=== PATIENT | male | born 1960 | race Caucasian/White ===

== ENCOUNTER → 2024-06-04 | Emergency (ER) | payer SELFPAY | LOC: ED 21:23 | DX: Z53.9 Procedure and treatment not carried out, unspecified reason (principal) ==

== ENCOUNTER 2024-07-27 17:29 | Emergency (ER) | payer MEDICARE, OTHER ==
[2024-07-27 18:18] VITALS: BP 171/79; TEMP 97.9; O2SAT 98
[2024-07-27 18:40] VITALS: PULSE 100
[2024-07-27 19:11] LABS: Appearance Clear (Clear); Bacteria None Seen /HPF (None Seen); Bilirubin Negative (Negative); Blood Negative (Negative); Epithelial Cells None Seen /HPF (None Seen); Glucose, Urine Negative (Negative); Hyaline Casts NONE SEEN /LPF (0-2); Ketones Negative (Negative); Leukocyte Esterase Negative (Negative); Nitrite Negative (Negative); Ph 6.5 (4.6-8.0); Protein,Urine Dip Negative (Negative); RBC 0-2 /HPF (0-5); Specific Gravity 1.015 (1.005-1.030); Urobilinogen 0.2 mg/dL (0.2); WBC 0-2 /HPF (0-5)
--- NOTE | 2024-07-27 19:14 | ERPHSYRPT ---
- History of Present Illness Time Seen by Provider: 07/27/24 18:15 Source: patient, family, EMS, police Exam Limitations: no limitations Patient Subjective Stated Complaint: pt was trying to leave [facility] and his guardian would like him sent to [facility], it was reported to this nurse from law enforcement that they will take him but he needs to be medically cleared Triage Nursing Assessment: Pt brought to the ER by EMS and law enforcement, hypertensive, denies pain, pulses normal, skin n/w/d, pt was at [facility] due to a wound that had needed a wound vac and is healing, pt does not want to be there anymore but he does not have anywhere to stay, guardian thinks that he needs a med adjustment, no difficulty breathing, doesn't appear to be in any distress Physician History: This is a 63-year-old white male patient who is a resident of [facility]. The patient was brought to the emergency department by the radiology clerk service escorted by the [facility]. Patient was trying to leave and [place]. However, his legal guardian feels there is a problem with his medication. He feels that needs to be adjusted and he spoke with [facility]. They told the legal guardian to bring the patient to the emergency department for medical clearance and that they would have a bed for him. Patient has no c omplaints. He has no headache. He has no shortness of breath and he has no abdominal pain. Patient has a history of hypertension and diabetes. The patient is not homicidal and is not suicidal. Timing/Duration: today Severity of Symptoms-Max: moderate Severity of Symptoms-Current: mild Context related to: living circumstances Allergies/Adverse Reactions: No Known Drug Allergies Allergy (Verified 07/27/24 17:53) Home Medications: Aspirin [Ecotrin] 81 mg PO DAILY 06/04/24 [History] Furosemide [Lasix] 20 mg PO BID 06/04/24 [History] Gabapentin 600 mg PO Q6H 06/04/24 [History] Hydrocodone/Acetaminophen [Hydrocodone-Acetamin 10-325 mg] 1 each PO Q4HPRN PRN 06/04/24 [History] Insulin Glargine [Lantus Insulin] 10 unit SQ HS 06/04/24 [History] Insulin Lispro [Humalog] See Rx Instructions .ROUTE .COMPLEX 06/04/24 [History] Metformin HCl [Metformin HCl ER] 750 mg PO EVENING MEAL 06/04/24 [History] Ondansetron ODT 4 MG [Zofran Odt 4 mg] 4 mg PO Q6H PRN PRN 06/04/24 [History] lisinopriL [Lisinopril] 5 mg PO DAILY 06/04/24 [History] Ciprofloxacin [Cipro 500 MG] 500 mg PO BID 06/18/24 [History] Hx Tetanus, Diphtheria Vaccination/Date Given: (unknown) Hx Influenza Vaccination/Date Given: (unknown) Hx Pneumococcal Vaccination/Date Given: No Travel Risk - International Travel Have you traveled outside of the country in past 3 weeks: No - Emerging Infectious Disease Are you exhibiting symptoms associated with any current EIDs: No Symptoms: Abdominal Pain, Vomitting - Past Medical History Pertinent Past Medical History: Yes Neurological History: Stroke, TIA Cardiac History: Hypertension Endocrine Medical History: Diabetes Type II Other Medical History: necrotizing faciitis - Past Surgical History Past Surgical History: Yes Cardiac: Pacemaker Other Surgical History: unknown surgery on neck - Social History Smoking Status: Current every day smoker Exposure to second hand smoke: Yes Drug Use: none - Social Determinants of Health Will the patient participate in the screening: Declined to provide - Nursing Vital Signs Nursing Vital Signs: Initial Vital Signs Temperature 97.9 F 07/27/24 17:48 Pulse Rate 104 H 07/27/24 17:48 Blood Pressure 171/79 07/27/24 17:48 O2 Sat by Pulse Oximetry 98 07/27/24 17:48 Pain Scale Pain Intensity 0 - Physical Exam SpO2: 98 - Course Nursing assessment & vital signs reviewed: Yes EKG Interpreted by Me: RATE (92), NORMAL AXIS, NORMAL INTERVALS, NORMAL QRS, Other (No acute ischemic changes on today's twelve-lead EKG. QTc is 437) Ordered Tests: Active Orders 24 hr Category Date Time Status EKG-ER Only STAT Care 07/27/24 18:40 Active ACETAMINOPHEN Stat Lab 07/27/24 19:30 Completed CBC W DIFF Stat Lab 07/27/24 19:30 Completed CMP Stat Lab 07/27/24 19:30 Completed ETHYL ALCOHOL Stat Lab 07/27/24 19:30 Completed SALICYLATE Stat Lab 07/27/24 19:30 Completed UA W/RFX UR CULTURE Stat Lab 07/27/24 18:39 Completed Urine Triage Profile Stat Lab 07/27/24 18:42 Completed Lab/Rad Data: Laboratory Result Diagrams 07/27/24 19:30 07/27/24 19:30 Laboratory Results 07/27/24 07/27/24 07/27/24 Range/Units 19:30 19:30 18:42 WBC 6.6 (4.23-9.07) x10^3/uL RBC 4.05 L (4.63-6.08) x10^6/uL Hgb 11.1 L (13.7-17.5) g/dL Hct 34.3 L (40.1-51.0) % MCV 84.7 (79.0-92.2) fL MCH 27.4 (25.7-32.2) pg MCHC 32.4 (32.3-36.5) g/dL RDW 15.3 H (11.6-14.4) % Plt Count 326 (163-337) x10^3/uL MPV 9.9 (9.4-12.4) fL Gran % 53.9 (34.0-67.9) % Immature Gran % (Auto) 0.3 (0.001-0.429) % Nucleat RBC Rel Count 0.0 (0.00-0.2) % Eos # (Auto) 0.30 (0.04-0.54) x10^3/uL Immature Gran # (Auto) 0.02 (0.001-0.031) x10^3u/L Absolute Lymphs (auto) 1.80 (1.32-3.57) x10^3/uL Absolute Monos (auto) 0.88 H (0.30-0.82) x10^3/uL Absolute Nucleated RBC 0.00 (0.00-0.012) x10^3u/L Lymphocytes % 27.2 (21.8-53.1) % Monocytes % 13.3 H (5.3-12.2) % Eosinophils % 4.5 (0.8-7.0) % Basophils % 0.8 (0.2-1.2) % Absolute Granulocytes 3.57 (1.78-5.38) x10^3/uL Basophils # 0.05 (0.01-0.08) x10^3/uL Sodium 135 (135-145) mmol/L Potassium 5.2 H (3.5-5.1) mmol/L Chloride 99 (98-107) mmol/L Carbon Dioxide 31 H (22-30) mmol/L Anion Gap 9.3 (5-15) MEQ/L BUN 19 (9-20) mg/dL Creatinine 0.82 (0.66-1.25) mg/dL Estimated GFR 97.5 ML/MIN Glucose 180 H (74-106) mg/dL Calcium 9.2 (8.4-10.2) mg/dL Total Bilirubin 0.40 (0.2-1.3) mg/dL AST 21 (17-59) U/L ALT 14 (0-50) U/L Alkaline Phosphatase 85 (38-126) U/L Serum Total Protein 7.3 (6.3-8.2) g/dL Albumin 4.2 (3.5-5.0) g/dL Urine Color (Yellow) Urine Appearance (Clear) Urine pH (4.6-8.0) Ur Specific Dixon (1.005-1.030) Urine Protein (Negative) Urine Glucose (UA) (Negative) mg/dL Urine Ketones (Negative) Urine Blood (Negative) Urine Nitrite (Negative) Urine Bilirubin (Negative) Urine Urobilinogen (0.2) mg/dL Ur Leukocyte Esterase (Negative) U Hyaline Cast (Auto) (0-2) /LPF Urine Microscopic RBC (0-5) /HPF Urine Microscopic WBC (0-5) /HPF Ur Epithelial Cells (None Seen) /HPF Urine Bacteria (None Seen) /HPF Urine Culture Reflexed (NO) Salicylates < 1.0 L (2-20) mg/dL Urine Opiates Level POSITIVE A (NEGATIVE) Ur Methadone NEGATIVE (NEGATIVE) Acetaminophen < 10 L (10-30) ug/ml Urine Barbiturates NEGATIVE (NEGATIVE) Ur Phencyclidine (PCP) NEGATIVE (NEGATIVE) Urine Amphetamine NEGATIVE (NEGATIVE) U Benzodiazepine Level NEGATIVE (NEGATIVE) Urine Cocaine NEGATIVE (NEGATIVE) Urine Marijuana (THC) NEGATIVE (NEGATIVE) Ethyl Alcohol < 10 (0-10) mg/dL 07/27/24 Range/Units 18:39 WBC (4.23-9.07) x10^3/uL RBC (4.63-6.08) x10^6/uL Hgb (13.7-17.5) g/dL Hct (40.1-51.0) % MCV (79.0-92.2) fL MCH (25.7-32.2) pg MCHC (32.3-36.5) g/dL RDW (11.6-14.4) % Plt Count (163-337) x10^3/uL MPV (9.4-12.4) fL Gran % (34.0-67.9) % Immature Gran % (Auto) (0.001-0.429) % Nucleat RBC Rel Count (0.00-0.2) % Eos # (Auto) (0.04-0.54) x10^3/uL Immature Gran # (Auto) (0.001-0.031) x10^3u/L Absolute Lymphs (auto) (1.32-3.57) x10^3/uL Absolute Monos (auto) (0.30-0.82) x10^3/uL Absolute Nucleated RBC (0.00-0.012) x10^3u/L Lymphocytes % (21.8-53.1) % Monocytes % (5.3-12.2) % Eosinophils % (0.8-7.0) % Basophils % (0.2-1.2) % Absolute Granulocytes (1.78-5.38) x10^3/uL Basophils # (0.01-0.08) x10^3/uL Sodium (135-145) mmol/L Potassium (3.5-5.1) mmol/L Chloride (98-107) mmol/L Carbon Dioxide (22-30) mmol/L Anion Gap (5-15) MEQ/L BUN (9-20) mg/dL Creatinine (0.66-1.25) mg/dL Estimated GFR ML/MIN Glucose (74-106) mg/dL Calcium (8.4-10.2) mg/dL Total Bilirubin (0.2-1.3) mg/dL AST (17-59) U/L ALT (0-50) U/L Alkaline Phosphatase (38-126) U/L Serum Total Protein (6.3-8.2) g/dL Albumin (3.5-5.0) g/dL Urine Color Yellow (Yellow) Urine Appearance Clear (Clear) Urine pH 6.5 (4.6-8.0) Ur Specific Dixon 1.015 (1.005-1.030) Urine Protein Negative (Negative) Urine Glucose (UA) Negative (Negative) mg/dL Urine Ketones Negative (Negative) Urine Blood Negative (Negative) Urine Nitrite Negative (Negative) Urine Bilirubin Negative (Negative) Urine Urobilinogen 0.2 (0.2) mg/dL Ur Leukocyte Esterase Negative (Negative) U Hyaline Cast (Auto) NONE SEEN (0-2) /LPF Urine Microscopic RBC 0-2 (0-5) /HPF Urine Microscopic WBC 0-2 (0-5) /HPF Ur Epithelial Cells None Seen (None Seen) /HPF Urine Bacteria None Seen (None Seen) /HPF Urine Culture Reflexed NO (NO) Salicylates (2-20) mg/dL Urine Opiates Level (NEGATIVE) Ur Methadone (NEGATIVE) Acetaminophen (10-30) ug/ml Urine Barbiturates (NEGATIVE) Ur Phencyclidine (PCP) (NEGATIVE) Urine Amphetamine (NEGATIVE) U Benzodiazepine Level (NEGATIVE) Urine Cocaine (NEGATIVE) Urine Marijuana (THC) (NEGATIVE) Ethyl Alcohol (0-10) mg/dL - Progress Progress: unchanged Progress Note: 07/27/24 19:13 My medical decision making and the assignment of moderate complexity to this patient's medical issue today is based on review of the patient's past medical history, review of patient medication list, reviewed patient drug allergy list, history present illness and physical findings on examination. The workup in this patient includes CBC, CMP, urinalysis, urine drug triage, twelve-lead EKG, alcohol level, salicylate level, acetaminophen level. Differential diagnosis includes was not limited to anxiety, depression, medication side effects 07/27/24 19:55 I interpreted the patient's laboratory data results. Based on the laboratory data results, there are no acute, emergent medical issues 07/27/24 20:08 Patient was asked several times whether or not he was suicidal or homicidal. He completely denies being suicidal or homicidal. He just does not want to be a resident at [facility]. [facility] refuses this patient since he is not suicidal homicidal, psychotic, hallucinating. In addition, he has a wound VAC in place on his lower leg there is still providing a service to him and they do not care for that type of thing at their facility. Therefore, the patient will be released from our emergency department. Counseled pt/family regarding: lab results, diagnosis Medical Desision Making - Independent Historian Additional History obtained from: Family - Diagnostic Testing Diagnostic test were ordered, analyzed, and reviewed by me: Yes - Risk of complications Low Risk: Low risk of morbidity from additional dx testing or treatment - Departure Departure Disposition: Home Clinical Impression: Encounter for medical assessment Condition: Stable Critical Care Time: No Referrals: JU PALOMO MD [Primary Care Provider] - Follow up/PCP as directed Additional Instructions: Contact the patient's primary care provider and/or [facility] patient primary care provider to make arrangements as an outpatient for placement at another facility if indicated
[2024-07-27 19:18] LABS: Amphetamine,Urine NEGATIVE (NEGATIVE); Barbiturate,Urine NEGATIVE (NEGATIVE); Benzodiazepine,Urine NEGATIVE (NEGATIVE); Cocaine,Urine NEGATIVE (NEGATIVE); Methadone,Urine NEGATIVE (NEGATIVE); Opiate,Urine POSITIVE (NEGATIVE); PCP,Urine NEGATIVE (NEGATIVE); THC,Urine NEGATIVE (NEGATIVE)
[2024-07-27 19:34] LABS: Absolute Neutrophil Ct (ANC) 3.57 x10^3/uL (1.78-5.38); BASOPHIL % 0.8 % (0.2-1.2); Basophil (Absolute #) 0.05 x10^3/uL (0.01-0.08); Eosinophil % 4.5 % (0.8-7.0); Hematocrit 34.3 % (40.1-51.0); Hemoglobin 11.1 g/dL (13.7-17.5); IMMATURE GRAN # 0.02 x10^3u/L (0.001-0.031); IMMATURE GRAN % 0.3 % (0.001-0.429); Lymphocytes % 27.2 % (21.8-53.1); Mean Cell Volume 84.7 fL (79.0-92.2); Mean Corpuscular Hemoglobin 27.4 pg (25.7-32.2); Mean Corpuscular Hgb Concent. 32.4 g/dL (32.3-36.5); Mean Platelet Volume 9.9 fL (9.4-12.4); Monocyte (Absolute #) 0.88 x10^3/uL (0.30-0.82); Monocytes % 13.3 % (5.3-12.2); Neutrophil % 53.9 % (34.0-67.9); Platelet Count 326 x10^3/uL (163-337); Red Blood Count 4.05 x10^6/uL (4.63-6.08); Red Cell Distribution Width 15.3 % (11.6-14.4); White Blood Count 6.6 x10^3/uL (4.23-9.07)
[2024-07-27 19:50] LABS: ACETAMINOPHEN < 10 ug/ml (10-30); ALBUMIN 4.2 g/dL (3.5-5.0); ALKALINE PHOSPHATASE 85 U/L (38-126); ANION GAP 9.3 MEQ/L (5-15); BLOOD UREA NITROGEN 19 mg/dL (9-20); CHLORIDE 99 mmol/L (98-107); Calcium 9.2 mg/dL (8.4-10.2); Carbon Dioxide 31 mmol/L (22-30); Creatinine 1 0.82 mg/dL (0.66-1.25); EST GLOMERULAR FILTRATION RATE 97.5 ML/MIN; ETHYL ALCOHOL < 10 mg/dL (0-10); Glucose 180 mg/dL (74-106); Potassium 5.2 mmol/L (3.5-5.1); SALICYLATE < 1.0 mg/dL (2-20); SGOT/AST 21 U/L (17-59); SGPT/ALT 14 U/L (0-50); SODIUM 135 mmol/L (135-145); Total Protein 7.3 g/dL (6.3-8.2)
== END 2024-07-27 20:47 | disposition home or self-care (01) ==
LOC: ED 17:29
DX: Z76.89 Persons encountering health services in other specified circumstances (principal); I10 Essential (primary) hypertension; E11.9 Type 2 diabetes mellitus without complications; Z79.891 Long term (current) use of opiate analgesic; Z79.4 Long term (current) use of insulin; Z79.84 Long term (current) use of oral hypoglycemic drugs; Z79.899 Other long term (current) drug therapy
CPT/HCPCS: 36415; 80053; 80143; 80179; 80307; 81001; 82077; 85025; 93005; 99283; 99284